=== PATIENT | female | born 1985 | race Two or more races ===

== ENCOUNTER 2024-04-15 21:01 | Emergency (ER) | payer MEDICAID, OTHER ==
[~2024-04-15] VITALS: Ht 165.1 cm; Wt 122.9 kg
--- NOTE | 2024-04-15 21:10 | ECG ---
[facility] Test Date: 2024-04-15 Test Time: 21:07:51 Pat Name: AMARILIS KERNS Department: ER Room: Gender: F Site Specialist: YUKI : 1985 Requested By: CHAUNCEY HENRIQUEZ Order Number: [id number] Reading MD: Giancarlo Britt Measurements Intervals [place] Rate: 98 P: 25 MO: 122 QRS: 30 QRSD: 84 T: 36 QT: 343 QTc: 438 Interpretive Statements Sinus rhythm Electronically Signed On 04-17-2024 16:02:26 PST by Giancarlo Britt Please click the below link to view image of tracing.
[2024-04-15 21:17] VITALS: BP 95/69; RESP 20; O2SAT 98
[2024-04-15 21:45] LABS: Basophils # (auto) 0 10 ^3/uL (0-0.2); Basophils % (auto) 0.4 % (0.0-2.0); Eosinophils # (auto) 0.1 10 ^3/uL (0-0.8); Eosinophils % (auto) 0.6 % (0.0-7.0); Hematocrit 45.8 % (36.0-46.0); Hemoglobin 15.2 g/dL (12.2-16.2); Lymphocytes # (auto) 0.9 10 ^3/uL (0.4-5.4); Mean Corpuscular Hemoglobin 32.1 pg (28.0-32.0); Mean Corpuscular Hgb Conc. 33.1 g/dL (32.0-36.0); Mean Corpuscular Volume 97.2 fL (80.0-100.0); Monocytes # (auto) 0.8 10 ^3/uL (0-1.3); Monocytes % (auto) 8.7 % (0.0-12.0); Neutrophils # (auto) 7.2 10 ^3/uL (1.6-8.6); Neutrophils % (auto) 80.3 % (37.0-80.0); Platelet Count (auto) 287 10^3/uL (140-450); Red Blood Cells 4.71 10^6/uL (4.0-5.20); Red Cell Distribution Width 13.7 % (11.8-14.3); White Blood Cell 8.9 10^3/uL (4.4-10.8)
[2024-04-15 21:52] LABS: Alanine Aminotransferase 25 U/L (7-40); Albumin 4.6 g/dL (3.2-4.8); Alkaline Phosphatase 82 U/L (46-116); Anion Gap 10 (5-15); Aspartate Aminotransferase 30 U/L (13-40); BUN/Creatinine Ratio 15.9 (10.0-20.0); Blood Urea Nitrogen 17 mg/dL (9-23); Calcium 9.5 mg/dL (8.7-10.4); Carbon Dioxide 20 mmol/L (20-31); Chloride 103 mmol/L (98-107); Potassium 4.7 mmol/L (3.5-5.1)
[2024-04-15 21:53] LABS: Bilirubin, Total 0.6 mg/dL (0.2-1.0); Total Protein 6.7 g/dL (5.7-8.2)
[2024-04-15 21:54] LABS: Glucose 111 mg/dL (74-106); Sodium 133 mmol/L (136-145)
--- NOTE | 2024-04-15 22:06 | DVH ---
EXAM: XY CHEST TWO VIEWS ROUTINE CLINICAL HISTORY: chest pain TECHNIQUE: Frontal and lateral views of the chest WID: COMPARISON: None FINDINGS: Lines and tubes: None Chest: The heart size and pulmonary vasculature is within normal limits. No pleural effusion, pneumothorax, or consolidation. The osseous structures are grossly intact. IMPRESSION: No acute cardiopulmonary abnormality.
[2024-04-15 22:28] VITALS: PULSE 98
--- NOTE | 2024-04-15 22:28 | ED.PDOC ---
HPI Comments 39-year-old female came to the emergency room due to chest pains. Patient has history of hypertension, states for the past few hours, has been experiencing sharp, aching substernal chest pains radiating to the back in associated with shortness of breath. Blood pressure taken at home a systolic >200. Upon arrival, blood pressure was 95/69 mmHg Chief Complaint: Chest Pain Time Seen by MD: 22:28 Reviewed Notes: Nurses Notes Allergies: Coded Allergies: NO KNOWN ALLERGIES (Unverified , 04/15/24) Information Source: Patient Mode of Arrival: Ambulatory Severity: Moderate Timing: Hours Duration: Since onset Prehospital treatment: None Location: Substernal Radiation: Back Quality: Sharp, Aching Onset: With Light Exertion Cardiac Risk Factors: HTN PE Risk Factors: None Associated Signs and Symptoms: SOB Past Medical History PAST MEDICAL HISTORY: HTN Surgical History: Denies all surgeries BEND UP History: Denies all BEND UP Hx Family History Family History: Reviewed,noncontributory to illness Social History Smoker: Non-Smoker Alcohol: Denies ETOH Use Drugs: Denies Drug Use Lives In: Home Constitutional: denies: chills, diaphoresis, fatigue, fever, malaise, sweats, weakness, others EENTM: denies: blurred vision, double vision, ear bleeding, ear discharge, ear drainage, ear pain, ear ringing, eye pain, eye redness, hearing loss, mouth pain, mouth swelling, nasal discharge, nose bleeding, nose congestion, nose pain, photophobia, tearing, throat pain, throat swelling, voice changes, others Respiratory: reports: shortness of breath Cardiovascular: reports: chest pain; denies: dizzy spells, diaphoresis, Dyspnea on exertion, edema, irregular heart beat, left arm pain, lightheadedness, palpitations, PND, syncope, others Gastrointestinal: denies: abdomen distended, abdominal pain, blood streaked bowels, constipated, diarrhea, dysphagia, difficulty swallowing, hematemesis, melena, nausea, poor appetite, poor fluid intake, rectal bleeding, rectal pain, vomiting, others Genitourinary: denies: abnormal vagina bleeding, burning, dyspareunia, dysuria, flank pain, frequency, hematuria, incontinence, pain, , vagina discharge, urgency, others Neurological: denies: dizziness, fainting, headache, left sided numbness, left sided weakness, numbness, paresthesia, pre-existing deficit, right sided numbness, right sided weakness, seizure, speech problems, tingling, tremors, we akness, others Musculoskeletal: reports: back pain; denies: gout, joint pain, joint swelling, muscle pain, muscle stiffness, neck pain, others Integumetry: denies: bruises, change in color, change in hair/nails, dryness, laceration, lesions, lumps, rash, wounds, others Allergic/Immunocompromised: denies: Difficulty Healing, Frequent Infections, Hives, Itching, others Hematologic/Lymphatic: denies: anemia, blood clots, easy bleeding, easy bruising, swollen glands, others Endocrine: denies: excessive hunger, excessive sweating, excessive thirst, excessive urination, flushing, intolerance to cold, intolerance to heat, unexplained weight gain, unexplained weight loss, others Psychiatric: denies: anxiety, bipolar disorder, depression, hopeless, panic disorder, schizophrenia, sleepless, suicidal, others Physical Exam General Appearance: No Apparent Distress, Normal HEENT: Normal ENT Inspection, Pharynx Normal, TMs Normal Neck: Full Range of Motion, Non-Tender, Normal, Normal Inspection Respiratory: Chest Non-Tender, Lungs Clear, No Accessory Muscle Use, No Respiratory Distress, Normal Breath Sounds Cardiovascular: No Edema, No JVD, No Murmur, No Gallop, Normal Peripheral Pulses, Regular Rate/Rhythm Breast Exam: Deferred Gastrointestinal: No Organomegaly, Non Tender, No Pulsatile Mass, Normal Bowel Sounds, Soft Genitalia: Deferred Pelvic: Deferred Rectal: Deferred Extremities: No calf tenderness, Normal capillary refill, Normal inspection, Normal range of motion, Non-tender, No pedal edema Musculoskeletal : Apperance: Normal Neurologic: Alert, supervisor public health nursing II-XII nml as Tested, No Motor Deficits, Normal Affect, Normal Mood, No Sensory Deficits Cerebellar Function: Normal Reflexes: Normal Skin: Dry, Normal Color, Warm Lymphatic: No Adenopathy EKG EKG : Pulse Rate (adult): 98 Cardiac Rhythm: NSR Was a procedure done? Was a procedure done?: No CP Differential Dx Differential Diagnosis: Angina, Anxiety / Panic Attack Differential Diagnosis: HTN Essential, HTN Accelerated Differential Diagnosis: Angina, Chest Wall Pain, Costochondritis, Esophageal reflux/spasm, Gastritis, Myocardial Infarction X-Ray, Labs, Meds, VS Vital Signs Date Time Temp Pulse Resp B/P (MAP) Pulse Ox O2 Delivery O2 Flow Rate FiO2 04/15/24 22:28 98 04/15/24 22:03 82 04/15/24 21:17 97.6 100 20 95/69 (78) 98 Lab Test 04/15/24 22:26 04/15/24 21:19 Range/Units Troponin I High Sensitivity < 3 L < 3 L </=34 ng/L White Blood Count 8.9 4.4-10.8 10^3/uL Red Blood Count 4.71 4.0-5.20 10^6/uL Hemoglobin 15.2 12.2-16.2 g/dL Hematocrit 45.8 36.0-46.0 % Mean Corpuscular Volume 97.2 80.0-100.0 fL Mean Corpuscular Hemoglobin 32.1 H 28.0-32.0 pg Mean Corpuscular Hemoglobin Concent 33.1 32.0-36.0 g/dL Red Cell Distribution Width 13.7 11.8-14.3 % Platelet Count 287 140-450 10^3/uL Mean Platelet Volume 7.2 6.9-10.8 fL Neutrophils (%) (Auto) 80.3 H 37.0-80.0 % Lymphocytes (%) (Auto) 10.0 10.0-50.0 % Monocytes (%) (Auto) 8.7 0.0-12.0 % Eosinophils (%) (Auto) 0.6 0.0-7.0 % Basophils (%) (Auto) 0.4 0.0-2.0 % Neutrophils # (Auto) 7.2 1.6-8.6 10 ^3/uL Lymphocytes # (Auto) 0.9 0.4-5.4 10 ^3/uL Monocytes # (Auto) 0.8 0-1.3 10 ^3/uL Eosinophils # (Auto) 0.1 0-0.8 10 ^3/uL Basophils # (Auto) 0 0-0.2 10 ^3/uL Nucleated Red Blood Cells 0.0 % Sodium Level 133 L 136-145 mmol/L Potassium Level 4.7 3.5-5.1 mmol/L Chloride Level 103 98-107 mmol/L Carbon Dioxide Level 20 20-31 mmol/L Anion Gap 10 5-15 Blood Urea Nitrogen 17 9-23 mg/dL Creatinine 1.07 H 0.550-1.02 mg/dL Glomerular Filtration Rate Calc 67 >90 mL/min BUN/Creatinine Ratio 15.9 10.0-20.0 Serum Glucose 111 H 74-106 mg/dL Calcium Level 9.5 8.7-10.4 mg/dL Total Bilirubin 0.6 0.2-1.0 mg/dL Aspartate Amino Transferase (AST) 30 13-40 U/L Alanine Aminotransferase (ALT) 25 7-40 U/L Alkaline Phosphatase 82 46-116 U/L Total Protein 6.7 5.7-8.2 g/dL Albumin 4.6 3.2-4.8 g/dL EXAM: XY CHEST TWO VIEWS ROUTINE CLINICAL HISTORY: chest pain TECHNIQUE: Frontal and lateral views of the chest WID: COMPARISON: None FINDINGS: Lines and tubes: None Chest: The heart size and pulmonary vasculature is within normal limits. No pleural effusion, pneumothorax, or consolidation. The osseous structures are grossly intact. IMPRESSION: No acute cardiopulmonary abnormality. Time of 1ST Reevaluation: 22:23 Reevaluation 1ST: Unchanged Patient Education/Counseling: Diagnosis, Treatment Family Education/Counseling: No Family Present Departure 1 Departure Time of Disposition: 00:29 (Patient presented with chest pain that was concerning for possible STEMI, ACS, PE, Pneumonia, Muscle Strain, COPD, Dissection. Data: 1. I ordered and reviewed the result of at least 3 labs including a CBC, BMP, and Troponin. 2. I independently interpreted the following tests: EKG which shows normal sinus rhythm and Chest X-ray which shows a benign chest.Risk:This patient presented with a high risk of morbidity due to further diagnostic testing or treatment and may suffer from an acute cardiac or respiratory disorder. After review of all the data patient is unlikely to have a pe , dissection, and is low risk for acs. Patient is stable at this time.Workup so far is benign and patient will be discharged with outpatient followup. ) Impression: Primary Impression: Acute chest pain Disposition: 01 HOME / SELF CARE / HOMELESS Condition: Stable Additional Instructions: You presented today with chest pain. Your workup today was benign including labs, troponin, EKG, chest x-ray. Your pain may be from musculoskeletal strain, acid reflux, anxiety, or many other factors. It is important to follow up with your regular doctor within 1 week. If your symptoms worsen or you have any other concerns please return to the emergency room. Discharged With: Self Critical Care Note Critical Care Time?: Yes (35 min-critical care time only) Stability Stability form required: No Heart Score Heart Score: Heart Score Response (Comments) Value History Moderate Suspicious 1 EKG Normal 0 Age <45 0 Risk Factors 1 or 2 risk factors 1 Troponin Normal limit 0 Total 2 I personally scribed for CHAUNCEY HENRIQUEZ MD ([email or web address]) on 04/15/24 at 22:28. Electronically submitted by Eric Fowler ([facility]). CHAUNCEY HENRIQUEZ MD Apr 15, 2024 22:28
[2024-04-16] MEDS: MAALOX PLUS or MAALOX 30 ML PO ONE (01:54)
[2024-04-16] MEDS: FAMOTIDINE 20 MG TAB PO ONE (01:54)
[2024-04-16 01:57] VITALS: TEMP 100
[2024-04-16] MEDS: ACETAMINOPHEN 325 MG TAB PO ONE (01:57)
[2024-04-16] MEDS: ONDANSETRON ODT 4 MG TAB PO ONE (01:58)
--- NOTE | 2024-04-18 07:10 | ECG ---
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
== END 2024-04-16 02:30 | disposition home or self-care (01) ==
LOC: ER 21:01
DX: R07.89 Other chest pain (principal); I10 Essential (primary) hypertension
CPT/HCPCS: 36415; 71046; 80053; 84484; 85025; 93005; 99285; Q0162

== ENCOUNTER 2025-03-20 12:25 | Inpatient (IN) | payer MEDICAID ==
[~2025-03-20] VITALS: Ht 165.1 cm; Wt 118.0 kg
--- NOTE | 2025-03-20 13:34 | ED.PDOC ---
HPI Comments This is a 39-year-old female who comes in with chief complaint of chest pain over the past five days. The patient states that this is the 2nd time she has had this chest pain. The pain is in the substernal region and increases with the movement and goes towards the left-hand side. The patient is also having some mild chills. There has been no nausea, vomiting or fever. There has been no diarrhea. The patient was able to ambulate into the emergency department's without any difficulty. Chief Complaint: Chest Pain Time Seen by MD: 12:29 Reviewed Notes: Nurses Notes, Medications, Allergies (No allergies to medications) Allergies: Coded Allergies: NSAIDs (Verified Allergy, Unknown, 03/20/25) Information Source: Patient Mode of Arrival: Ambulatory Severity: Moderate Timing: Days (Started five days ago) Duration: Since onset Prehospital treatment: None Past Medical History PAST MEDICAL HISTORY: HTN Surgical History: , Hysterectomy CONE TREATER History: Denies all CONE TREATER Hx Family History Family History: Reviewed,noncontributory to illness Social History Smoker: Non-Smoker Alcohol: Occasionally Drugs: Denies Drug Use Lives In: Home Constitutional: reports: chills; denies: diaphoresis, fatigue, fever, malaise, sweats, weakness, others EENTM: denies: blurred vision, double vision, ear bleeding, ear discharge, ear drainage, ear pain, ear ringing, eye pain, eye redness, hearing loss, mouth pain, mouth swelling, nasal discharge, nose bleeding, nose congestion, nose pain, photophobia, tearing, throat pain, throat swelling, voice changes, others Respiratory: denies: cough, hemoptysis, orthopnea, SOB at rest, shortness of breath, SOB with excertion, stridor, wheezing, others Cardiovascular: reports: chest pain; denies: dizzy spells, diaphoresis, Dyspnea on exertion, edema, irregular heart beat, left arm pain, lightheadedness, palpitations, PND, syncope, others Gastrointestinal: denies: abdomen distended, abdominal pain, blood streaked bowels, constipated, diarrhea, dysphagia, difficulty swallowing, hematemesis, melena, nausea, poor appetite, poor fluid intake, rectal bleeding, rectal pain, vomiting, others Genitourinary: denies: abnormal vagina bleeding, burning, dyspareunia, dysuria, flank pain, frequency, hematuria, incontinence, pain, , vagina discharge, urgency, others Neurological: denies: dizziness, fainting, headache, left sided numbness, left sided weakness, numbness, paresthesia, pre-existing deficit, right sided numbness, right sided weakness, seizure, speech problems, tingling, tremors, weakness, others Musculoskeletal: denies: back pain, gout, joint pain, joint swelling, muscle pa in, muscle stiffness, neck pain, others Integumetry: denies: bruises, change in color, change in hair/nails, dryness, laceration, lesions, lumps, rash, wounds, others Allergic/Immunocompromised: denies: Difficulty Healing, Frequent Infections, Hives, Itching, others Hematologic/Lymphatic: denies: anemia, blood clots, easy bleeding, easy bruising, swollen glands, others Endocrine: denies: excessive hunger, excessive sweating, excessive thirst, excessive urination, flushing, intolerance to cold, intolerance to heat, unexplained weight gain, unexplained weight loss, others Psychiatric: denies: anxiety, bipolar disorder, depression, hopeless, panic disorder, schizophrenia, sleepless, suicidal, others Physical Exam General Appearance: Moderate Distress HEENT: Normal ENT Inspection, Pharynx Normal, TMs Normal Neck: Full Range of Motion, Non-Tender, Normal, Normal Inspection Respiratory: Chest Non-Tender, Lungs Clear, No Accessory Muscle Use, No Respiratory Distress, Normal Breath Sounds Cardiovascular: No Edema, No JVD, No Murmur, No Gallop, Normal Peripheral Pulses, Regular Rate/Rhythm Breast Exam: Deferred Gastrointestinal: No Organomegaly, Non Tender, No Pulsatile Mass, Normal Bowel Sounds, Soft Genitalia: Deferred Pelvic: Deferred Rectal: Deferred Extremities: No calf tenderness, Normal capillary refill, Normal inspection, Normal range of motion, Non-tender, No pedal edema Musculoskeletal : Apperance: Normal Neurologic: Alert, call center supervisor II-XII nml as Tested, No Motor Deficits, Normal Affect, Normal Mood, No Sensory Deficits Cerebellar Function: Normal Reflexes: Normal Skin: Dry, Normal Color, Warm Lymphatic: No Adenopathy EKG EKG : Pulse Rate (adult): 84 [place]: Normal Cardiac Rhythm: NSR Block: None ST: Nonsp Was a procedure done? Was a procedure done?: No CP Differential Dx Differential Diagnosis: Angina, NC, Pulmonary Embolus Differential Diagnosis: CHF Differential Diagnosis: Pericarditis X-Ray, Labs, Meds, VS Vital Signs Date Time Temp Pulse Resp B/P (MAP) Pulse Ox O2 Delivery O2 Flow Rate FiO2 03/20/25 18:37 97.7 91 16 169/92 (117) 98 97.7 03/20/25 15:36 85 03/20/25 15:02 97.7 85 16 168/94 (118) 98 97.7 03/20/25 13:34 84 03/20/25 13:33 86 03/20/25 12:48 82 17 158/92 (114) 98 03/20/25 12:36 97.4 98 18 140/112 99 97.4 Lab Test 03/20/25 13:47 03/20/25 12:48 Range/Units Troponin I High Sensitivity < 3 L < 3 L </=34 ng/L White Blood Count 10.8 4.4-10.8 10^3/uL Red Blood Count 4.74 4.0-5.20 10^6/uL Hemoglobin 14.9 12.2-16.2 g/dL Hematocrit 43.2 36.0-46.0 % Mean Corpuscular Volume 91.3 80.0-100.0 fL Mean Corpuscular Hemoglobin 31.4 28.0-32.0 pg Mean Corpuscular Hemoglobin Concent 34.4 32.0-36.0 g/dL Red Cell Distribution Width 14.0 11.8-14.3 % Platelet Count 296 140-450 10^3/uL Mean Platelet Volume 7.4 6.9-10.8 fL Neutrophils (%) (Auto) 73.6 37.0-80.0 % Lymphocytes (%) (Auto) 20.2 10.0-50.0 % Monocytes (%) (Auto) 4.9 0.0-12.0 % Eosinophils (%) (Auto) 0.8 0.0-7.0 % Basophils (%) (Auto) 0.5 0.0-2.0 % Neutrophils # (Auto) 8.0 1.6-8.6 10 ^3/uL Lymphocytes # (Auto) 2.2 0.4-5.4 10 ^3/uL Monocytes # (Auto) 0.5 0-1.3 10 ^3/uL Eosinophils # (Auto) 0.1 0-0.8 10 ^3/uL Basophils # (Auto) 0.1 0-0.2 10 ^3/uL Nucleated Red Blood Cells 0.2 % Sodium Level 139 136-145 mmol/L Potassium Level 4.1 3.5-5.1 mmol/L Chloride Level 108 H 98-107 mmol/L Carbon Dioxide Level 23 20-31 mmol/L Anion Gap 8 5-15 Blood Urea Nitrogen 6 L 9-23 mg/dL Creatinine 0.54 L 0.550-1.02 mg/dL Glomerular Filtration Rate Calc 119 >90 mL/min BUN/Creatinine Ratio 11.1 10.0-20.0 Serum Glucose 98 74-106 mg/dL Calcium Level 9.2 8.7-10.4 mg/dL Current Medications Medications (Trade) Dose Ordered Sig/Eros Route Start Time Stop Time Status Last Admin Aspirin 162 mg ONCE ONCE PO 03/20/25 12:45 03/20/25 12:46 DC 03/20/25 15:08 PROCEDURE(s): CXR2 - CHEST TWO VIEWS ROUTINE IMPRESSION: No acute cardiopulmonary disease. IV Hep-Lock is being established. At this time the patient's CBC and chemistry panel are within normal limits The troponin level is negative A repeat troponin level is negative The patient was given aspirin 162 mg by mouth At this time, the patient will be admitted to the hospitalist The patient understands and agrees with the management. Images Reviewed?: Images reviewed and evaluated by me Time of 1ST Reevaluation: 13:33 Reevaluation 1ST: Unchanged Patient Education/Counseling: Diagnosis, Treatment, Prognosis Family Education/Counseling: No Family Present SEPSIS Sepsis Screen Date sepsis recognized/suspect: Mar 20, 2025 Time Sepsis recognized/suspect: 1243 Recent Procedure: No On Antibiotic Therapy: No Respiratory Rate >20: No Heart Rate >90: No Temp<36 C (96.8 F) or >38.3 C: No SBP <90 or MAP <65 mmHG: No New Acute Mental Status Change: No Is the patient on CPAP, BIPAP,: No Physician Orders Heplock Iv (03/20/25 12:38) Child Protective Services Specialist (03/20/25 12:38) Blood Pressure (03/20/25 12:38) Pulse Oximetry (03/20/25 12:38) Chest Two Views Routine (03/20/25 12:38) Urinalysis (03/20/25 12:38) Electrocardigram (03/20/25 12:38) Electrocardigram (03/20/25 15:38) Vital Signs Date Time Temp Pulse Resp B/P (MAP) Pulse Ox O2 Delivery O2 Flow Rate FiO2 03/20/25 18:37 97.7 91 16 169/92 (117) 98 97.7 03/20/25 15:36 85 03/20/25 15:02 97.7 85 16 168/94 (118) 98 97.7 03/20/25 13:34 84 03/20/25 13:33 86 03/20/25 12:48 82 17 158/92 (114) 98 03/20/25 12:36 97.4 98 18 140/112 99 97.4 Laboratory Tests Test 03/20/25 12:48 White Blood Count 10.8 10^3/uL (4.4-10.8) Medications Medications Dose Ordered Sig/Eros Route Start Time Stop Time Status Last Admin Dose Admin Aspirin 162 mg ONCE ONCE PO 03/20/25 12:45 03/20/25 12:46 DC 03/20/25 15:08 Departure 1 Departure Time of Disposition: 18:43 Impression: Primary Impression: Acute chest pain Additional Impression: Acute myocardial ischemia Disposition: 09 ADMITTED INPATIENT Admit to: Tele Condition: Fair Critical Care Note Critical Care Time?: Yes (45 min-critical care time only) Stability Stability form required: Yes Unstable for transfer: Telemetry monitoring (Telemetry monitoring required), ED Physician Assesment (Clinical assesment) Heart Score Heart Score: Heart Score Response (Comments) Value History Moderate Suspicious 1 EKG Repolarization Disturb 1 Age <45 0 Risk Factors 1 or 2 risk factors 1 Troponin Normal limit 0 Total 3 I personally scribed for SAM PIERRE MD ([email or web address]) on 03/20/25 at 16:13. Electronically submitted by Kahlil Brewer ([email or web address]). SAM PIERRE MD Mar 20, 2025 13:34
[2025-03-20 13:35] LABS: Potassium 4.1 mmol/L (3.5-5.1); Sodium 139 mmol/L (136-145)
--- NOTE | 2025-03-20 13:35 | ECG ---
[facility] Test Date: 2025-03-20 Test Time: 13:33:40 Pat Name: AMARILIS KERNS Department: ED Room: Gender: F Sprinkler Fitter Apprentice: cristian : 1985 Requested By: SAM PIERRE Order Number: [id number] Reading MD: Giancarlo Britt Measurements Intervals [place] Rate: 86 P: 44 ND: 133 QRS: 25 QRSD: 87 T: 44 QT: 385 QTc: 461 Interpretive Statements Sinus rhythm Low voltage, precordial leads Electronically Signed On 03-20-2025 15:29:56 PST by Giancarlo Britt Please click the below link to view image of tracing.
[2025-03-20 13:36] LABS: Anion Gap 8 (5-15); Calcium 9.2 mg/dL (8.7-10.4); Carbon Dioxide 23 mmol/L (20-31)
[2025-03-20 13:37] LABS: Chloride 108 mmol/L (98-107); Hematocrit 43.2 % (36.0-46.0); Hemoglobin 14.9 g/dL (12.2-16.2); Mean Corpuscular Hemoglobin 31.4 pg (28.0-32.0); Mean Corpuscular Volume 91.3 fL (80.0-100.0); Nucleated Red Blood Cells % 0.2 %
--- NOTE | 2025-03-20 13:39 | DVH ---
XY CHEST TWO VIEWS ROUTINE CLINICAL HISTORY: cp COMPARISON: XY CHEST TWO VIEWS ROUTINE on DOS: 04/15/24 TECHNIQUE: Frontal and lateral view of the chest was obtained FINDINGS: Lines and Tubes: None Lungs: No focal consolidation. Pleura: No effusion. No pneumothorax. Cardiomediastinal contours: Unremarkable Bones: No acute osseous abnormality. IMPRESSION: No acute cardiopulmonary disease.
[2025-03-20 13:41] LABS: BUN/Creatinine Ratio 11.1 (10.0-20.0); Glucose 98 mg/dL (74-106)
[2025-03-20 13:43] LABS: Blood Urea Nitrogen 6 mg/dL (9-23)
--- NOTE | 2025-03-20 15:37 | ECG ---
[facility] Test Date: 2025-03-20 Test Time: 15:36:03 Pat Name: AMARILIS KERNS Department: ED Room: [address] [place] [address] Gender: F Structures Engineer: cristian : 1985 Requested By: SAM PIERRE Order Number: [id number] Reading MD: Giancarlo Britt Measurements Intervals [place] Rate: 85 P: 49 AK: 129 QRS: 19 QRSD: 88 T: 43 QT: 387 QTc: 461 Interpretive Statements Sinus rhythm Low voltage, precordial leads Electronically Signed On 03-24-2025 10:27:19 PST by Giancarlo Britt Please click the below link to view image of tracing.
[2025-03-20] MEDS ORDERED: NITROGLYCERIN 0.4 MG SL TAB SL PRN (19:15)
[2025-03-20] MEDS ORDERED: MORPHINE SULFATE INJ 2 MG/ml SYRG IV PRN (19:15)
[2025-03-20] MEDS ORDERED: ONDANSETRON HCL 4 MG/2 ML VIAL IV PRN (19:15)
--- NOTE | 2025-03-20 21:57 | DVHHP2 ---
History of Present Illness Reason for Visit: Chest pain History of Present Illness 39-year-old female presents for evaluation of chest pain. Patient endorses a five day history of left-sided chest pain that radiates to her back. Denies shortness or breath, nausea or vomiting. She states the pain intensifies with movement. Patient reports carrying her grandson five days ago and reports it might have caused the pain. Past Medical History Hypertension Past Surgical History Hysterectomy, Family History Noncontributory Smoke: No ALCOHOL: occassional Drugs: None Lives: with Family Review of Systems Review of Systems Review of systems are currently negative otherwise addressed in HPI. Allergies: Coded Allergies: NSAIDs (Verified Allergy, Unknown, 03/20/25) Medications Current Medications Medications Dose Ordered Sig/Eros Route Start Time Stop Time Status Last Admin Dose Admin Aspirin 81 mg DAILY PO 03/21/25 10:00 Atorvastatin Calcium 10 mg HS PO 03/20/25 22:00 Ondansetron HCl 4 mg Q4HP PRN IV 03/20/25 19:15 Acetaminophen 650 mg Q6HP PRN PO 03/20/25 19:15 Nitroglycerin 0.4 mg Q5MINP PRN SL 03/20/25 19:15 Morphine Sulfate 2 mg Q30M PRN IV 03/20/25 19:15 Exam Vital Signs Vital Signs Date Time Temp Pulse Resp B/P (MAP) Pulse Ox O2 Delivery O2 Flow Rate FiO2 03/20/25 21:18 97.8 111 16 146/99 (115) 94 97.8 Exam Gen: 39-year-old female in mild distress, morbidly obese Skin: Warm, dry, normal color and texture, no rash. HEENT: Normocephalic atraumatic, mucous membranes moist and pink. Neck: Cervical and supraclavicular nodes normal without enlargement, trachea is midline, thyroid gland is normal without masses. Pulmonary: Clear to auscultation and percussion bilaterally. Cardiac: Regular rate and rhythm. No murmur Abdomen: Soft, nontender, nondistended, bowel sounds present all 4 quadrants, no guarding, no rigidity, no organomegaly. Extremities: No cyanosis, clubbing, no edema Neuro: Cranial nerves II through XII grossly intact, normal affect and speech, no focal motor deficits. Labs/Xrays ORDERING PHYSICIAN: SAM PIERRE MD PROCEDURE(s): CXR2 - CHEST TWO VIEWS ROUTINE REASON: cp ORDER NUMBER(s): [id number], ACCESSION NUMBER(s): [id number] XY CHEST TWO VIEWS ROUTINE CLINICAL HISTORY: cp COMPARISON: XY CHEST TWO VIEWS ROUTINE on DOS: 04/15/24 TECHNIQUE: Frontal and lateral view of the chest was obtained FINDINGS: Lines and Tubes: None Lungs: No focal consolidation. Pleura: No effusion. No pneumothorax. Cardiomediastinal contours: Unremarkable Bones: No acute osseous abnormality. IMPRESSION: No acute cardiopulmonary disease. Labs Test 03/20/25 13:47 03/20/25 12:48 Range/Units Troponin I High Sensitivity < 3 L </=34 ng/L White Blood Count 10.8 4.4-10.8 10^3/uL Red Blood Count 4.74 4.0-5.20 10^6/uL Hemoglobin 14.9 12.2-16.2 g/dL Hematocrit 43.2 36.0-46.0 % Mean Corpuscular Volume 91.3 80.0-100.0 fL Mean Corpuscular Hemoglobin 31.4 28.0-32.0 pg Mean Corpuscular Hemoglobin Concent 34.4 32.0-36.0 g/dL Red Cell Distribution Width 14.0 11.8-14.3 % Platelet Count 296 140-450 10^3/uL Mean Platelet Volume 7.4 6.9-10.8 fL Neutrophils (%) (Auto) 73.6 37.0-80.0 % Lymphocytes (%) (Auto) 20.2 10.0-50.0 % Monocytes (%) (Auto) 4.9 0.0-12.0 % Eosinophils (%) (Auto) 0.8 0.0-7.0 % Basophils (%) (Auto) 0.5 0.0-2.0 % Neutrophils # (Auto) 8.0 1.6-8.6 10 ^3/uL Lymphocytes # (Auto) 2.2 0.4-5.4 10 ^3/uL Monocytes # (Auto) 0.5 0-1.3 10 ^3/uL Eosinophils # (Auto) 0.1 0-0.8 10 ^3/uL Basophils # (Auto) 0.1 0-0.2 10 ^3/uL Nucleated Red Blood Cells 0.2 % Sodium Level 139 136-145 mmol/L Potassium Level 4.1 3.5-5.1 mmol/L Chloride Level 108 H 98-107 mmol/L Carbon Dioxide Level 23 20-31 mmol/L Anion Gap 8 5-15 Blood Urea Nitrogen 6 L 9-23 mg/dL Creatinine 0.54 L 0.550-1.02 mg/dL Glomerular Filtration Rate Calc 119 >90 mL/min BUN/Creatinine Ratio 11.1 10.0-20.0 Serum Glucose 98 74-106 mg/dL Calcium Level 9.2 8.7-10.4 mg/dL SEPSIS Sepsis Screen Date sepsis recognized/suspect: Mar 20, 2025 Time Sepsis recognized/suspect: 1242 Recent Procedure: No On Antibiotic Therapy: No Respiratory Rate >20: No Heart Rate >90: No Temp<36 C (96.8 F) or >38.3 C: No SBP <90 or MAP <65 mmHG: No New Acute Mental Status Change: No Is the patient on CPAP, BIPAP,: No Physician Orders Aspirin Tablet (03/21/25 10:00) Atorvastatin (Lipitor) (03/20/25 22:00) Basic Metabolic Panel (03/21/25 04:00) Admit (03/20/25 19:07) Ondansetron Hcl (Zofran) (03/20/25 19:15) Cardiac Diet-2gna,Lofat,Lochol (03/21/25 Breakfast) Echo 2d Mode Cardiac Dop (03/20/25 19:07) Condition: Fair (03/20/25 19:07) Acetaminophen Tablet (Tylenol Tablet) (03/20/25 19:15) Bedrest With Bathroom Privileg (03/20/25 19:07) Nitroglycerin Sublingual (Ntrostat Subli (03/20/25 19:15) Morphine Sulfate Injection (03/20/25 19:15) Stat Ekg For Chest Pain (03/20/25 19:07) Notify Of Changes From Base (03/20/25 19:07) Cyber Intelligence Analyst For 24 Hours (03/20/25 19:07) Emergency Dysrhythmia Protocol (03/20/25 19:07) Rhythm Strips Once Every Shift (03/20/25 19:07) Oxygen By Nasal Cannula (03/20/25 19:07) D-Dimer (03/20/25 21:52) Thyroid Stimulating Hormone (03/20/25 21:52) Lipid Panel (03/20/25 21:52) Metoprolol Tartrate Tablet (Lopressor Ta (03/20/25 22:00) Metoprolol Tartrate Tablet (Lopressor Ta (03/21/25 10:00) Vital Signs Date Time Temp Pulse Resp B/P (MAP) Pulse Ox O2 Delivery O2 Flow Rate FiO2 03/20/25 21:18 97.8 111 16 146/99 (115) 94 97.8 03/20/25 18:37 97.7 91 16 169/92 (117) 98 97.7 03/20/25 15:36 85 03/20/25 15:02 97.7 85 16 168/94 (118) 98 97.7 Laboratory Tests Test 03/20/25 12:48 White Blood Count 10.8 10^3/uL (4.4-10.8) Medications Medications Dose Ordered Sig/Eros Route Start Time Stop Time Status Last Admin Dose Admin Aspirin 162 mg ONCE ONCE PO 03/20/25 12:45 03/20/25 12:46 DC 03/20/25 15:08 162 MG Assessment/Plan Assessment/Plan Assessment Chest pain,? Musculoskeletal Accelerated hypertension Morbid obesity Plan Admit the patient to telemetry to the hospitalist Echocardiogram pending Metoprolol b.i.d. As needed antihypertensives Continue treatment per orders Plan discussed with: Patient My Orders Orders - JOSE REYNACNSteven Procedure Category Date Status Time Aspirin Tablet PHA 03/21/25 In Process 10:00 Atorvastatin (Lipitor) PHA 03/20/25 In Process 22:00 Basic Metabolic Panel LAB 03/21/25 Verified 04:00 Admit ADMIT 03/20/25 Transmitted 19:07 Ondansetron Hcl PHA 03/20/25 In Process (Zofran) 19:15 Cardiac DIET 03/21/25 Transmitted Diet-2gna,Lofat,Lochol Breakfast Echo 2d Mode Cardiac US 03/20/25 Logged DOP 19:07 Condition: Fair CHANELLE 03/20/25 In Process 19:07 Acetaminophen Tablet PHA 03/20/25 In Process (Tylenol Tablet) 19:15 Bedrest With Bathroom [facility]ELLE 03/20/25 In Process Privileg 19:07 Nitroglycerin [facility] 03/20/25 In Process Sublingual (Ntrostat 19:15 Morphine Sulfate PHA 03/20/25 In Process Injection 19:15 Stat Ekg For Chest [facility] 03/20/25 In Process Pain 19:07 Notify Of Changes [facility] 03/20/25 In Process From Base 19:07 Cyber Intelligence Analyst For [facility] 03/20/25 In Process 24 Hours 19:07 Emergency Dysrhythmia [facility] 03/20/25 In Process Protocol 19:07 Rhythm Strips Once [facility] 03/20/25 In Process Every Shift 19:07 Oxygen By Nasal RT 03/20/25 Transmitted Cannula 19:07 D-Dimer LAB 03/20/25 Verified 21:52 Thyroid Stimulating LAB 03/20/25 Verified Hormone 21:52 Lipid Panel LAB 03/20/25 Verified 21:52 Metoprolol Tartrate PHA 03/20/25 Verified Tablet (Lopressor Ta 22:00 Metoprolol Tartrate PHA 03/21/25 Verified Tablet (Lopressor Ta 10:00 Date of Service: Mar 20, 2025 Billing Provider: JOSE REYNA Common Visit Codes: [id number] INP/OBS CARE (HIGH) JOSE REYNA Mar 20, 2025 21:57
[2025-03-20] MEDS: METOPROLOL TARTRATE 25 MG TAB PO ONE (22:00)
[2025-03-20 22:28] LABS: Cholesterol 223 mg/dL (< 200); HDL Cholesterol 94 mg/dL (40-59); Triglycerides 182 mg/dL (< 150)
[2025-03-21] MEDS: ATORVASTATIN 20 MG TAB PO SCH (01:42)
[2025-03-21 02:42] VITALS: BP 113/40; PULSE 90; RESP 16; TEMP 97.8; O2SAT 97
[2025-03-21 06:02] LABS: Potassium 3.9 mmol/L (3.5-5.1); Sodium 138 mmol/L (136-145)
[2025-03-21 06:03] LABS: Anion Gap 7 (5-15); Calcium 9.1 mg/dL (8.7-10.4); Carbon Dioxide 23 mmol/L (20-31); Chloride 108 mmol/L (98-107)
[2025-03-21 06:08] LABS: BUN/Creatinine Ratio 14.0 (10.0-20.0); Glucose 98 mg/dL (74-106)
[2025-03-21 06:10] LABS: Blood Urea Nitrogen 7 mg/dL (9-23)
[2025-03-21 08:00] VITALS: PULSE 78; PULSE 82; RESP 18; O2SAT 96
[2025-03-21 08:55] VITALS: BP 148/79; PULSE 80; RESP 16; TEMP 98; O2SAT 96
[2025-03-21 08:58] LABS: Urine Protein, UAD Negative (Negative)
[2025-03-21] MEDS: ACETAMINOPHEN 325 MG TAB PO PRN (10:23)
[2025-03-21] MEDS: METOPROLOL TARTRATE 25 MG TAB PO SCH (10:24)
[2025-03-21 12:00] VITALS: BP 142/86; PULSE 86; RESP 16; TEMP 98.2; O2SAT 96
[2025-03-21] MEDS ORDERED: ATOR-507 PO (12:22)
--- NOTE | 2025-03-21 16:47 | DVHDS2 ---
Discharge Summary Date of Admission Mar 20, 2025 at 19:07 Date of Discharge: Mar 21, 2025 Labs/Diagnostic Data: Laboratory Results Test 03/21/25 07:54 03/21/25 05:27 03/20/25 22:08 03/20/25 13:47 Urine Color Yellow (Yellow) Urine Clarity Clear (Clear) Urine pH 5.5 (5.0-9.0) Urine Specific [place] 1.020 (1.001-1.035) Urine Protein Negative (Negative) Urine Ketones Negative (Negative) Urine Blood Trace /uL (Negative) Urine Nitrite 1+ (Negative) Urine Bilirubin Negative (Negative) Urine Urobilinogen Normal mg/dL (Negative) Urine Leukocyte Esterase Trace /uL (Negative) Urine RBC 2 /hpf (0 - 4) Urine Microscopic WBC 7 /HPF (0-5) Urine Squamous Epithelial Cells Few /hpf (<5) Urine Bacteria Few /hpf (None Seen) Urine Mucus Few (None Seen) Urine Glucose Normal mg/dL (Normal) Sodium Level 138 mmol/L (136-145) Potassium Level 3.9 mmol/L (3.5-5.1) Chloride Level 108 mmol/L (98-107) Carbon Dioxide Level 23 mmol/L (20-31) Anion Gap 7 (5-15) Blood Urea Nitrogen 7 mg/dL (9-23) Creatinine 0.50 mg/dL (0.550-1.02) Glomerular Filtration Rate Calc 121 mL/min (>90) BUN/Creatinine Ratio 14.0 (10.0-20.0) Serum Glucose 98 mg/dL (74-106) Calcium Level 9.1 mg/dL (8.7-10.4) D-Dimer, Quantitative 0.23 mg/L FEU (0.0-0.49) Troponin I High Sensitivity < 3 ng/L (</=34) Triglycerides Level 182 mg/dL (< 150) Cholesterol Level 223 mg/dL (< 200) LDL Cholesterol 116 mg/dL (< 100) HDL Cholesterol 94 mg/dL (40-59) Thyroid Stimulating Hormone (TSH) 1.74 uIU/mL (0.55-4.78) Test 03/20/25 12:48 White Blood Count 10.8 10^3/uL (4.4-10.8) Red Blood Count 4.74 10^6/uL (4.0-5.20) Hemoglobin 14.9 g/dL (12.2-16.2) Hematocrit 43.2 % (36.0-46.0) Mean Corpuscular Volume 91.3 fL (80.0-100.0) Mean Corpuscular Hemoglobin 31.4 pg (28.0-32.0) Mean Corpuscular Hemoglobin Concent 34.4 g/dL (32.0-36.0) Red Cell Distribution Width 14.0 % (11.8-14.3) Platelet Count 296 10^3/uL (140-450) Mean Platelet Volume 7.4 fL (6.9-10.8) Neutrophils (%) (Auto) 73.6 % (37.0-80.0) Lymphocytes (%) (Auto) 20.2 % (10.0-50.0) Monocytes (%) (Auto) 4.9 % (0.0-12.0) Eosinophils (%) (Auto) 0.8 % (0.0-7.0) Basophils (%) (Auto) 0.5 % (0.0-2.0) Neutrophils # (Auto) 8.0 10 ^3/uL (1.6-8.6) Lymphocytes # (Auto) 2.2 10 ^3/uL (0.4-5.4) Monocytes # (Auto) 0.5 10 ^3/uL (0-1.3) Eosinophils # (Auto) 0.1 10 ^3/uL (0-0.8) Basophils # (Auto) 0.1 10 ^3/uL (0-0.2) Nucleated Red Blood Cells 0.2 % Other Laboratory Tests 03/21/25 05:27 03/20/25 12:48 Brief Hx & Hospital Course: Final diagnoses: Atypical chest pain of musculoskeletal origin Mixed hyperlipidemia Morbid obesity Chest pain of left chest and shoulder with tenderness Workup is negative EKG is normal Troponin is negative DC home F/U with PCP MIGUEL Lipitor 40 mg qd Condition at Discharge: Stable Final Diagnosis/Problems List Atypical chest pain of musculoskeletal origin Mixed hyperlipidemia Morbid obesity Discharge Disposition: Home SNF Discharge Will this Physician continue t: No Discharge Instruct/Medications Diet: Cardiac 2g Na,low cholest Activity: No Restrictions, As Tolerated Follow Up/Referral: PCP as soon as possible Medications: Lipitor 40 mg daily Scheduled Atorvastatin Calcium (Lipitor), 1 TAB PO DAILY Discharge Statement: "Patient was advised to return to the ER or call 911 if any headaches, dizziness, shortness of breath, chest pain, abdominal pain, bleeding, fevers, or worsening of medical condition. Patient was counseled about treatment plan, medications, possible side effects, patientverbalized understanding. All questions were answered to the best of my ability. This discharge took greater then 30 minutes in planning, reviewing documentation, counseling the patient, and discussing with other team members." ASSESSMENT ASSESSMENT Assessment Atypical chest pain of musculoskeletal origin Mixed hyperlipidemia Morbid obesity Date of Service: Mar 21, 2025 Billing Provider: JOSEFA SOFIA MD Common Visit Codes: [id number] DISCH DAY >30min JOSEFA SOFIA MD Mar 21, 2025 16:47
[2025-03-22] MEDS ORDERED: ASPirin-EC 81 mg tab PO SCH (10:00)
--- NOTE | 2025-04-24 13:51 | ECG ---
[facility] Test Date: 2025-03-20 Test Time: 12:31:00 Pat Name: AMARILIS KERNS Department: ED Room: [address] [place] [address] Gender: F Hunter: burton : 1985 Requested By: SAM PIERRE Order Number: [id number] Reading MD: Giancarlo Britt Measurements Intervals [place] Rate: 84 P: 47 DC: 131 QRS: 32 QRSD: 89 T: 41 QT: 379 QTc: 449 Interpretive Statements Sinus rhythm Low voltage, precordial leads Baseline wander in lead(s) V1,V2 Electronically Signed On 05-01-2025 13:09:43 PST by Giancarlo Britt Please click the below link to view image of tracing.
== END 2025-03-21 16:17 | disposition home or self-care (01) | DRG 203 ==
LOC: ER 12:25 → OVERFLOW 19:07
PROVIDERS: ADMIT Internal Medicine Geriatric Medicine; ATTEND Internal Medicine Geriatric Medicine
DX: R07.89 Other chest pain (principal); E66.01 Morbid (severe) obesity due to excess calories; I10 Essential (primary) hypertension; Z68.41 Body mass index [BMI] 40.0-44.9, adult; E78.2 Mixed hyperlipidemia; Z90.710 Acquired absence of both cervix and uterus
CPT/HCPCS: 36415; 71046; 80048; 80061; 81001; 84443; 84484; 85025; 85379; 93005; 99291; G0378